=== PATIENT | male | born 1955 | race Caucasian/White ===

== ENCOUNTER 2016-11-24 08:56 | Day surgery (SDC) | payer BC ==
[~2016-11-24 08:56] MED LIST: Lactated Ringers 1,000 ML IV SCH; Lidocaine 1% 4 ML ONE; Lidocaine 1%/Sod Bicarbonate in NS 8.4% 1 ML Syringe PRN; Propofol 200 MG/20 ML SDV ONE; Sodium Chloride 0.9% 10 ML Syringe FLUSH PRN; fentaNYL 100 MCG/2 ML SDV ONE
--- NOTE | 2016-11-24 10:12 | PCM.PREANE ---
Preanesthetic Assessment - Anesthesia/Transfusion/Family Hx Anesthesia History: Prior Anesthesia Without Reaction Family History of Anesthesia Reaction: No Transfusion History: No Prior Transfusion(s) Intubation History: Unknown - Review of Systems General: No Symptoms Pulmonary: No Symptoms (COPD/ emphysema, acute bronchitis few months ago/ current smoker 1ppd times 40 yrs.) Cardiovascular: No Symptoms Gastrointestinal: No Symptoms (GERD), Constipation Neurological: No Symptoms Other: Reports: None (history of prostate hypertrophy), Easy Bruising - Physical Assessment NPO Status Date: 11/23/16 NPO Status Time: 20:00 Pulse: 77 O2 Sat by Pulse Oximetry: 96 Respiratory Rate: 16 Blood Pressure: 103/62 Temperature: 36.7 C Vital Signs: Last Vital Signs Temp 36.7 C 11/24/16 09:05 Pulse 77 11/24/16 09:05 Resp 16 11/24/16 09:05 BP 103/62 11/24/16 09:05 Pulse Ox 96 11/24/16 09:05 Height: 1.73 m Weight: 59.421 kg ASA Class: 2 Mental Status: Alert & Oriented x3 Airway Class: Mallampati = 2 Dentition: Reports: Normal Dentition, Caries Thyro-Mental Finger Breadths: 3 Mouth Opening Finger Breadths: 3 ROM/Head Extension: Full Lungs: Clear to Auscultation, Normal Respiratory Effort Cardiovascular: Regular Rate, Regular Rhythm, No Murmurs - Imaging/EKG Impressions: 2016 CXR: emphysema noted/ nothing acute noted - Allergies Allergies/Adverse Reactions: Allergies Allergy/AdvReac Type Severity Reaction Status Date / Time No Known Allergies Allergy Verified 11/24/16 09:45 - Anesthesia Plan Pre-Op Medication Ordered: None - Acknowledgements Anesthesia Type Planned: MAC Pt an Appropriate Candidate for the Planned Anesthesia: Yes Alternatives and Risks of Anesthesia Discussed w Pt/Guardian: Yes Pt/Guardian Understands and Agrees with Anesthesia Plan: Yes PreAnesthesia Questionnaire - Past Health History Medical/Surgical History: Denies Medical/Surgical History HEENT History: Reports: None Cardiovascular History: Reports: None Respiratory History: Reports: Bronchitis, Recurrent, COPD Gastrointestinal History: Reports: Chronic Constipation, Colon Polyp, GERD, Hemorrhoids Genitourinary History: Reports: Prostate Disorder, Other (See Below) Other Genitourinary History: Elevated testosterone Musculoskeletal History: Reports: Osteoporosis Neurological History: Reports: None Psychiatric History: Reports: Other (See Below) Other Psychiatric History: Fatigue Endocrine/Metabolic History: Reports: None Hematologic History: Reports: None Immunologic History: Reports: None Oncologic (Cancer) History: Reports: None Dermatologic History: Reports: None - Infectious Disease History Infectious Disease History: Reports: Influenza - Past Surgical History Head Surgeries/Procedures: Reports: None HEENT Surgical History: Reports: None Cardiovascular Surgical History: Reports: None Respiratory Surgical History: Reports: None GI Surgical History: Reports: Colonoscopy Male Surgical History: Reports: None Endocrine Surgical History: Reports: None Neurological Surgical History: Reports: None Musculoskeletal Surgical History: Reports: None Dermatological Surgical History: Reports: None - SUBSTANCE USE Smoking Status *Q: Current Every Day Smoker Tobacco Use Within Last Twelve Months: Cigarettes Days Per Week of Alcohol Use: 0 Recreational Drug Use History: No - HOME MEDS Home Medications: Home Meds Albuterol Sulfate [Proair Respiclick] 2 puff IH Q4H PRN 11/23/16 [History] Bisacodyl [Dulcolax] 5 mg PO DAILY PRN 11/23/16 [History] Denosumab [Prolia] 60 mg SUBCUT ASDIRECTED 11/23/16 [History] Fluticasone/Salmeterol [Advair 250-50 Diskus] 1 puff IH BID 11/23/16 [History] Hydrocortisone [Hydrocortisone 2.5% Crm] 1 applic RECTAL BEDTIME PRN 11/23/16 [ History] Sildenafil Citrate [Sildenafil] 50 - 100 mg PO ASDIRECTED PRN 11/23/16 [History] Tamsulosin [Flomax] 0.4 mg PO DAILY 11/23/16 [History] - CURRENT (IN HOUSE) MEDS Current Meds: Current Medications Lactated Ringer's (Ringers, Lactated) 1,000 mls @ 125 mls/hr IV ASDIRECTED DEZ Stop: 11/24/16 23:00 Last Admin: 11/24/16 09:32 Dose: 125 mls/hr Lidocaine/Sodium Bicarbonate (Buffered Lidocaine 1% In Ns 8.4%) 0.25 ml .XX ONETIME PRN PRN Reason: Prior to IV Start Stop: 11/24/16 18:00 Last Admin: 11/24/16 09:31 Dose: 0.25 ml Sodium Chloride (Saline Flush) 10 ml FLUSH ASDIRECTED PRN PRN Reason: Keep Vein Open Stop: 11/24/16 18:00 Discontinued Medications Fentanyl (Sublimaze) Confirm Administered Dose 100 mcg .ROUTE .STK-MED ONE Stop: 11/24/16 07:35 Lidocaine HCl (Xylocaine-Mpf 1%) Confirm Administered Dose 4 mls @ as directed .ROUTE .STK-MED ONE Stop: 11/24/16 07:34 Propofol (Diprivan 20 Ml) Confirm Administered Dose 200 mg .ROUTE .STK-MED ONE Stop: 11/24/16 07:35
[2016-11-24] MEDS ORDERED: Propofol 200 MG/20 ML SDV ONE (11:31)
--- NOTE | 2016-11-24 11:37 | PCM.OPNOTE ---
- General Post-Op/Procedure Note Date of Surgery/Procedure: 11/24/16 Operative Procedure(s): 1. Sigmoidoscopy. 2. Rubber band ligation; 2 column left lateral and right anterior Findings: 1. Large sigmoid diverticula with very tortuous and spastic sigmoid colon 2. Prolapsed internal hemorrhoids left lateral and right anterior Pre Op Diagnosis: Rectal bleeding Post-Op Diagnosis: 1. Internal hemorrhoids. 2. Sigmoid diverticulosis, spastic sigmoid Anesthesia Technique: MAC, Moderate Sedation Primary Surgeon: Manolo Calix Pathology: None EBL in mLs: 0 Complications: None Condition: Good Free Text/Narrative:: After adequate IV sedation and analgesia was obtained the patient was placed on his left side with monitoring. Perianal inspection revealed the hemorrhoids which were confirmed by digital examination. There were prominent left lateral and right anterior columns. A lubricated colonoscope was inserted into the rectum and advanced to the distal sigmoid. The sigmoid had a very large diverticula and was very tortuous. I was able to navigate through most of the sigmoid colon safely to about 50 cm. I was unable to safely pass the scope further because of severe angulation of this structure. I aborted the procedure and then proceeded toward hemorrhoidal ligation. I applied 2 rubber bands above the dentate above the left lateral hemorrhoidal column and above the right anterior hemorrhoidal column. There were no complications associated with this. The patient will be scheduled for an air-contrast barium enema to screen the proximal colon. This was discussed with him and his in detail and they were happy with the recommendation. Photographs were taken for the patient and for the medical record.
--- NOTE | 2016-11-24 11:43 | PCM48HPAN ---
Post Anesthesia Note - EVALUATION WITHIN 48HRS OF ANESTHETIC Vital Signs in Normal Range: Yes Patient Participated in Evaluation: Yes Respiratory Function Stable: Yes Airway Patent: Yes Cardiovascular Function Stable: Yes Hydration Status Stable: Yes Pain Control Satisfactory: Yes Nausea and Vomiting Control Satisfactory: Yes Mental Status Recovered: Yes
[2016-11-24 12:48] VITALS: BP 105/72
== END 2016-11-24 12:48 | disposition home or self-care (01) ==
LOC: JD.SDS 08:56
PROVIDERS: ATTEND Surgery
DX: K57.30 Diverticulosis of large intestine without perforation or abscess without bleeding (principal); K64.8 Other hemorrhoids; K21.9 Gastro-esophageal reflux disease without esophagitis; J44.9 Chronic obstructive pulmonary disease, unspecified; F17.210 Nicotine dependence, cigarettes, uncomplicated; N40.0 Benign prostatic hyperplasia without lower urinary tract symptoms; Z79.899 Other long term (current) drug therapy
CPT/HCPCS: 45350; J3010; J7120; 00810; J2704

== ENCOUNTER 2019-04-08 19:22 | Emergency (ER) | payer MEDICARE, OTHER ==
[2019-04-08 19:40] VITALS: BP 132/74; PULSE 103
[2019-04-08] MEDS ORDERED: Acetaminophen/HYDROcodone 325-5 MG Tab PO STA (21:27)
--- NOTE | 2019-04-08 21:36 | EDM.PDOC ---
ED HPI GENERAL MEDICAL PROBLEM - General Chief Complaint: Back Pain or Injury Stated Complaint: SHORT OF BREATH BACK AND ABDOMINAL PAIN Time Seen by Provider: 04/08/19 20:50 Source of Information: Reports: Patient, Family () History Limitations: Reports: No Limitations - History of Present Illness INITIAL COMMENTS - FREE TEXT/NARRATIVE: Mr. Jacques is a pleasant 64-year-old man with a past medical history is significant for COPD, for which he takes oxygen via an oxygen concentrator, and BPH, who presents to the ED stating that he was going up stairs yesterday around 15:00, when he coughed. He was afraid that his coughing might cause him to fall, so he sat down on the steps, and fears that he may have sat down too hard. He is subsequently developed right lower back pain that radiates across his entire lower back. His pain has been getting worse. He also reports lower abdominal cramps since yesterday. He thought his cramps might be due to constipation, therefore he took MiraLAX and almost a full bottle of magnesium citrate, without relief of symptoms. He states that it hurts for him to stand or flex. He denies a history of chronic constipation. The patient reports decreased urine output, but denies recent dysuria or gross hematuria. He states that his cough is chronic, and is associated with chronic dyspnea on exertion. He denies recent dyspnea at rest. No recent fever, chills , nausea, vomiting, diarrhea, recent weight gain or weight loss, recent bloody bowel movements or black bowel movements, recent joint aches, headaches, or rashes. The patient's PCP is KALI Osei. He did receive an influenza vaccine this season. Right Lower Back Pain Score (Numeric/FACES): 9 - Related Data Allergies Allergy/AdvReac Type Severity Reaction Status Date / Time No Known Allergies Allergy Verified 04/08/19 19:40 Home Meds: Home Meds Albuterol Sulfate [Proair Respiclick] 2 puff IH Q4H PRN 11/23/16 [History] Bisacodyl [Dulcolax] 5 mg PO DAILY PRN 11/23/16 [History] Denosumab [Prolia] 60 mg SUBCUT ASDIRECTED 11/23/16 [History] Fluticasone/Salmeterol [Advair 250-50 Diskus] 1 puff IH BID 11/23/16 [History] Hydrocortisone [Hydrocortisone 2.5% Crm] 1 applic RECTAL BEDTIME PRN 11/23/16 [ History] Sildenafil Citrate 50 - 100 mg PO ASDIRECTED PRN 11/23/16 [History] Tamsulosin [Flomax] 0.4 mg PO DAILY 11/23/16 [History] Orphenadrine [Norflex] 1 tab PO Q12H PRN #14 tab.er 04/08/19 [Rx] Past Medical History Respiratory History: Reports: COPD (home O2) Gastrointestinal History: Reports: Colon Polyp, Hemorrhoids Genitourinary History: Reports: BPH Musculoskeletal History: Reports: Osteoporosis - Infectious Disease History Infectious Disease History: Reports: Influenza - Past Surgical History GI Surgical History: Reports: Colonoscopy, Hernia, Inguinal (left), Other (See Below) (Percutaneous liver drains) Social & Family History - Tobacco Use Smoking Status *Q: Current Every Day Smoker Years of Tobacco use: 47 Packs/Tins Daily: 0.6 Packs/Tins Daily Comment: Down from 2 ppd - Caffeine Use Caffeine Use: Reports: Coffee - Alcohol Use Alcohol Use History: No - Recreational Drug Use Recreational Drug Use: No - Living Situation & Occupation Living situation: Reports: , with Spouse Occupation: Retired ED ROS GENERAL - Review of Systems Review Of Systems: Comprehensive ROS is negative, except as noted in HPI. ED EXAM, GENERAL - Physical Exam Exam: See Below Exam Limited By: No Limitations General Appearance: Alert, WD/WN, Other (Occasionally winces with sharp pain in the lower right back with body movement) Eye Exam: Bilateral Eye: EOMI, Normal Inspection Ears: Normal External Exam, Hearing Grossly Normal Nose: Normal Inspection Throat/Mouth: Normal Inspection, Normal Lips, Normal Voice, No Airway Compromise Head: Atraumatic, Normocephalic Neck: Normal Inspection, Full Range of Motion Respiratory/Chest: No Respiratory Distress, Lungs Clear, Normal Breath Sounds, No Accessory Muscle Use Cardiovascular: Normal Peripheral Pulses, Regular Rate, Rhythm, No Edema, No Gallop, No JVD, No Murmur, No Rub Peripheral Pulses: 4+: Radial (L), Radial (R) GI/Abdominal: Normal Bowel Sounds, Soft, Non-Tender (including the prepubic region, although the patient reports the sensation of "a balloon" when palpated) , No Organomegaly, No Distention, No Abnormal Bruit, No Mass (Male) Exam: Deferred Rectal (Males) Exam: Deferred Back Exam: Normal Inspection, Full Range of Motion, CVA Tenderness (R), Paraspinal Tenderness (right flank only, not left). No: CVA Tenderness (L), Vertebral Tenderness Extremities: Normal Inspection, Normal Range of Motion, No Pedal Edema, Normal Capillary Refill Neurological: Alert, Oriented, Normal Cognition, No Motor/Sensory Deficits Psychiatric: Normal Affect Skin Exam: Warm, Dry, Intact, Normal Color, No Rash Course - Vital Signs Last Recorded V/S: Last Vital Signs Temp 37.2 C 04/08/19 19:37 Pulse 103 H 04/08/19 19:37 Resp 16 04/08/19 19:37 BP 132/74 04/08/19 19:37 Pulse Ox 92 L 04/08/19 19:37 - Orders/Labs/Meds Labs: Laboratory Tests 04/08/19 Range/Units 21:35 Urine Color Yellow (Yellow) Urine Appearance Slt cloudy H (Clear) Urine pH 7.0 (5.0-8.0) Ur Specific [place] 1.025 (1.005-1.030) Urine Protein Negative (Negative) Urine Glucose (UA) Negative (Negative) Urine Ketones Negative (Negative) Urine Occult Blood Negative (Negative) Urine Nitrite Negative (Negative) Urine Bilirubin Negative (Negative) Urine Urobilinogen 0.2 (0.2-1.0) Ur Leukocyte Esterase Negative (Negative) Urine RBC Not seen (0-5) /hpf Urine WBC Not seen (0-5) /hpf Ur Squamous Epith Cells 0-5 (0-5) /hpf Amorphous Sediment Many H (NOT SEEN) /hpf Urine Bacteria Rare (FEW) /hpf Urine Mucus Not seen (FEW) /hpf Meds: Medications Discontinued Medications Generic Name Dose Route Start Last Admin Trade Name Freq PRN Reason Stop Dose Admin Hydrocodone Bitart/Acetaminophen 1 tab 04/08/19 21:27 04/08/19 21:34 [place] 325-5 Mg PO 04/08/19 21:28 1 tab ONETIME STA Administration Ibuprofen 600 mg 04/08/19 23:23 04/08/19 23:36 Motrin PO 04/08/19 23:24 600 mg ONETIME ONE Administration Lidocaine HCl 10 ml 04/08/19 23:25 04/08/19 23:36 Xylocaine 2% Jelly MUCMEM 04/08/19 23:26 10 ml ONETIME ONE Administration Orphenadrine Citrate 100 mg 04/08/19 23:23 04/08/19 23:36 Norflex PO 04/08/19 23:24 100 mg ONETIME STA Administration - Re-Assessments/Exams Free Text/Narrative Re-Assessment/Exam: 04/08/19 21:31 The patient feels constipated, although had no bowel movement following MiraLAX and almost a full bottle of Mg-citrate. I have ordered a KUB to evaluate. I am more concerned that the abdominal fullness that the patient is experiencing is due to urinary retention due to BPH, therefore I have ordered a urinalysis with post void bladder scan. The patient's lower back pain is most likely musculoskeletal, but it is interesting that he has right CVA tenderness, but no left CVA tenderness, despite the pain radiating across his entire back. This would suggest a ureterolith or, possibly, pyelonephritis, although my clinical suspicion for pyelonephritis is very low, as the patient has no fever, nausea, vomiting, or dysuria. The urinalysis will determine if there is blood suggestive of ureterolith, or UTI suggestive of pyelonephritis. Lastly, I think it unlikely that the patient suffered a compression fracture or pelvic fracture when he almost fell yesterday, but I have ordered x-rays of his lumbar spine and pelvis, just to be sure. 04/08/19 23:11 The patient's urinalysis is unremarkable. His post-void bladder scan found 150 mL of urinary retention. The KUB is to be unremarkable. No stool is seen. Formal read per the Radiologist pending. 3-view radiographs of the lumbar spine reviewed. Aortosclerosis is noted. No compression fracture is seen. Formal read per the Radiologist pending. Single view radiograph of the pelvis reviewed. No fractures or dislocations identified. Formal read per the Radiologist pending. 04/08/19 23:26 Test results discussed with the patient and his . As above, the KUB shows no stool, therefore the rectal urgency that the patient is experiencing is most likely due to pressure from his bladder. I recommended straight catheterization to drain his bladder, to see if that relieves his sensation of the need to defecate, and the patient agreed. As for the patient's back pain, it is most likely due to a muscle spasm, particularly since it is always if he remains still, and is exacerbated with many movements. The patient will be started on Norflex and oral ibuprofen, and I will submit a prescription for Norflex. The patient can take over-the- counter ibuprofen. If his symptoms persist, he should follow-up with his PCP. Departure - Departure Time of Disposition: 23:28 Disposition: Home, Self-Care 01 Condition: Good Clinical Impression: Urinary retention, Spasm of back muscles - Discharge Information *PRESCRIPTION DRUG MONITORING PROGRAM REVIEWED*: Not Applicable *COPY OF PRESCRIPTION DRUG MONITORING REPORT IN PATIENT YUDITH: Not Applicable Prescriptions: Orphenadrine [Norflex] 1 tab PO Q12H PRN #14 tab.er PRN Reason: Muscle Spasm Instructions: Muscle Cramps and Spasms, [id number], Acute Urinary Retention, Male, [id number] Referrals: Maty Huff PA-C [Primary Care Provider] - Forms: ED Department Discharge Additional Instructions: You were seen in the emergency room for lower right back pain, the sensation of constipation, and decreased urine output. Work-up in the ER included a urinalysis, a post void bladder scan, and x-rays of your abdomen, lumbar spine, and pelvis. Your urinalysis was unremarkable. You do not have a urinary tract infection or suggestion of a kidney stone. Your post void bladder scan found 150 mL. You were subsequently straight cath to drain your bladder. It is important that you continue to take your tamsulosin (Flomax). Your KUB was unremarkable. You are not constipated. X-rays of your lumbar spine showed aortosclerosis, but no compression fractures. The x-ray of your pelvis was unremarkable. No broken bones. Based on your history, physical exam, and ER tests, your back pain is most likely due to a muscle spasm. You have been started on the muscle relaxant Norflex, and a prescription for Norflex has been sent to the [facility], located on [facility]. Take 1 tablet of Norflex every 12 hours, starting tomorrow, Tuesday, . In addition to Norflex, we recommend that you take [id number] ibuprofen, 2 to 3 tablets (400-600 mg) every 8 hours, with food. You should expect significant improvement in your back pain in 2 to 3 days. If your symptoms persist, please follow-up with your PCP, KALI Osei. If any other problems, please do not hesitate to return to the ER. Sepsis Event Note - Evaluation Sepsis Screening Result: No Definite Risk - Focused Exam Date Exam was Performed: 04/10/19 Time Exam was Performed: 07:39
[2019-04-08] MEDS ORDERED: Ibuprofen 600 MG Tab PO ONE (23:23)
[2019-04-08] MEDS ORDERED: Orphenadrine 100 MG Tab.ER PO STA (23:23)
[2019-04-08] MEDS ORDERED: Lidocaine 2% Jelly 10 ML Urojet MUCMEM ONE (23:25)
--- NOTE | 2019-04-09 07:32 | CR ---
Pelvis: AP view of the pelvis was obtained. Comparison: No prior pelvis exam. Slight joint space narrowing is seen superiorly within the right hip. Very minimal narrowing within the superior left hip is seen. Sacroiliac joints are within normal limits. No fracture or other bony abnormality is seen. Impression: 1. Minimal joint space narrowing superiorly within both hips. 2. AP pelvis study is otherwise unremarkable. Diagnostic code #2 This report was dictated in [place] Standard Time
--- NOTE | 2019-04-09 07:36 | CR ---
Lumbar spine: AP, lateral and cone-down lateral views centered to the lumbosacral junction were obtained. Comparison: No prior lumbar spine imaging. Lateral reconstructed abdominal CT of 03/24/16 was utilized. Slight anterior wedging is noted of L1. Other vertebral body heights are maintained. Mild scattered endplate osteophytes are seen. Disc height is preserved. Vascular calcification is noted. Pedicles are intact. Visualized transverse and spinous processes are intact. No subluxation or fracture is seen. Sacroiliac joints appear within normal limits. Impression: 1. Slight anterior wedging of L1. This is felt to be old as this finding is noted on prior CT exam. 2. Scattered endplate osteophytes. 3. No additional abnormality is seen. Diagnostic code #2 This report was dictated in [place] Standard Time
--- NOTE | 2019-04-09 07:57 | CR ---
Abdomen: Supine view of the abdomen was obtained. Comparison: Prior abdominal x-ray of 03/04/11. Slightly prominent loop of bowel noted within the left upper abdomen believed to be air within the splenic flexure. Calcifications are noted within the pelvis compatible with phleboliths. Mild joint space narrowing is noted within the hips. Minimal vascular calcification is noted. Impression: 1. Findings as noted above. 2. Nothing acute is seen. No abnormal amounts of stool are seen. Diagnostic code #2 This report was dictated in [place] Standard Time
== END 2019-04-08 23:45 | disposition home or self-care (01) ==
LOC: JD.ED 19:22
DX: M62.830 Muscle spasm of back (principal); R33.9 Retention of urine, unspecified; J44.9 Chronic obstructive pulmonary disease, unspecified; F17.210 Nicotine dependence, cigarettes, uncomplicated; Z79.899 Other long term (current) drug therapy
CPT/HCPCS: 51701; 51798; 72100; 72170; 74018; 81001; 99285; A9270; 99283

== ENCOUNTER 2019-12-30 16:56 | Emergency (ER) | payer MEDICARE, OTHER ==
[2019-12-30 17:29] VITALS: BP 124/78
--- NOTE | 2019-12-30 18:24 | EDM.PDOC ---
ED HPI GENERAL MEDICAL PROBLEM - General Chief Complaint: General Stated Complaint: HIP PAIN/PT FELL Time Seen by Provider: 12/30/19 17:59 Source of Information: Reports: Patient, RN Notes Reviewed History Limitations: Reports: No Limitations - History of Present Illness INITIAL COMMENTS - FREE TEXT/NARRATIVE: Patient is a 64-year-old male who presents to the ED for evaluation of his right-sided chest pain. Patient states that he was reaching for something near his pickup tailgate, and he was stepping on a stool when the stool gave way underneath of him, and he ended up falling onto the right lower portion of his anterior chest on the tailgate. He states that he is having pain with deep breathing to this area. This is also very tender to the touch, he does note that he has an issue with severe osteoporosis, also COPD. He rates his pain at about a 7 out of 10, he was most concerned about broken ribs at this time. He does wear home oxygen at night at 1 L normally. He has tramadol at home but did not want to take any medications prior to coming to the ER, as he wanted to be evaluated. He has not had any fevers or chills, cough/worsening shortness of breath, nausea/vomiting/diarrhea. Right Chest Pain Score (Numeric/FACES): 7 - Related Data Allergies Allergy/AdvReac Type Severity Reaction Status Date / Time No Known Allergies Allergy Verified 12/30/19 17:29 Home Meds: Home Meds Albuterol Sulfate [Proair Respiclick] 2 puff IH Q4H PRN 11/23/16 [History] Bisacodyl [Dulcolax] 5 mg PO DAILY PRN 11/23/16 [History] Denosumab [Prolia] 60 mg SUBCUT ASDIRECTED 11/23/16 [History] Fluticasone Propion/Salmeterol [Advair 250-50 Diskus] 1 puff IH BID 11/23/16 [History] Hydrocortisone [Hydrocortisone 2.5% Crm] 1 applic RECTAL BEDTIME PRN 11/23/16 [History] Sildenafil Citrate 50 - 100 mg PO ASDIRECTED PRN 11/23/16 [History] Tamsulosin [Flomax] 0.4 mg PO DAILY 11/23/16 [History] Orphenadrine [Norflex] 1 tab PO Q12H PRN #14 tab.er 01/12/20 [Rx] Acetaminophen [Tylenol] 12/30/19 [History] traMADol HCl [Tramadol HCl] 12/30/19 [History] Past Medical History - Past Health History Medical/Surgical History: Denies Medical/Surgical History HEENT History: Reports: None Cardiovascular History: Reports: None Respiratory History: Reports: COPD Gastrointestinal History: Reports: Colon Polyp, Hemorrhoids Genitourinary History: Reports: BPH Other Genitourinary History: Elevated testosterone Musculoskeletal History: Reports: Osteoporosis Neurological History: Reports: None Psychiatric History: Reports: Other (See Below) Other Psychiatric History: Fatigue Endocrine/Metabolic History: Reports: None Hematologic History: Reports: None Immunologic History: Reports: None Oncologic (Cancer) History: Reports: None Dermatologic History: Reports: None - Infectious Disease History Infectious Disease History: Reports: Influenza - Past Surgical History Head Surgeries/Procedures: Reports: None HEENT Surgical History: Reports: None GI Surgical History: Reports: Colonoscopy, Hernia, Inguinal, Other (See Below) Endocrine Surgical History: Reports: None Neurological Surgical History: Reports: None Dermatological Surgical History: Reports: None Social & Family History - Family History Family Medical History: Noncontributory - Tobacco Use Smoking Status *Q: Current Some Day Smoker Years of Tobacco use: 30 Packs/Tins Daily: 0.5 - Caffeine Use Caffeine Use: Reports: Coffee - Recreational Drug Use Recreational Drug Use: No - Living Situation & Occupation Living situation: Reports: , with Spouse Occupation: Retired ED ROS GENERAL - Review of Systems Review Of Systems: Comprehensive ROS is negative, except as noted in HPI. ED EXAM, GENERAL - Physical Exam Exam: See Below Exam Limited By: No Limitations General Appearance: Alert, WD/WN, No Apparent Distress Respiratory/Chest: No Respiratory Distress, Lungs Clear, Normal Breath Sounds, No Accessory Muscle Use, Other (Right lower anterior chest is tender to palpation, no obvious bruising at this time.) Cardiovascular: Normal Peripheral Pulses, Regular Rate, Rhythm, No Murmur GI/Abdominal: Normal Bowel Sounds, Soft, Non-Tender, No Distention, No Mass Extremities: Normal Inspection, Normal Capillary Refill Neurological: Alert, Oriented, Normal Cognition, No Motor/Sensory Deficits Psychiatric: Normal Affect, Normal Mood Skin Exam: Warm, Dry, Intact, Normal Color, No Rash Course - Vital Signs Last Recorded V/S: Last Vital Signs Temp 97.2 F 12/30/19 17:24 Pulse 103 H 12/30/19 17:24 Resp 22 H 12/30/19 17:24 BP 124/78 12/30/19 17:24 Pulse Ox 85 L 12/30/19 17:24 - Orders/Labs/Meds Orders: Active Orders 24 hr Category Date Time Status Ribs 2V w Chest Rt [CR] Stat Exams 12/30/19 17:29 Taken - Re-Assessments/Exams Free Text/Narrative Re-Assessment/Exam: 12/30/19 18:25 Patient presents to the ED for the evaluation of his right anterior chest pain. X-rays were obtained at time of triage, there is no acute rib fracture present. There is no sign of any pneumothorax as well. Patient be discharged home with general recommendations. Departure - Departure Time of Disposition: 18:26 Disposition: Home, Self-Care 01 Condition: Good Clinical Impression: Contusion of right chest wall Qualifiers: Encounter type: initial encounter Qualified Code(s): S20.211A - Contusion of right front wall of thorax, initial encounter - Discharge Information *PRESCRIPTION DRUG MONITORING PROGRAM REVIEWED*: No *COPY OF PRESCRIPTION DRUG MONITORING REPORT IN PATIENT YUDITH: No Instructions: Contusion, [id number] Referrals: Maty Huff PA-C [Primary Care Provider] - Additional Instructions: You have been evaluated in the ED for your right sided chest pain after your fall. Your x-ray demonstrated no acute rib fractures at this time. Please use ice/heat as tolerated to the affected area. You mentioned that you have a prescription for tramadol, you may take 1 tablet every 6 hours as needed for further pain relief. If you are increasing your intake of this medication, recommend you start a stool softener like MiraLAX, to help prevent constipation as these medications can be quite constipating. Please continue to do your current breathing exercises, to make sure that you do not get any pneumonia due to your right-sided chest discomfort. Highly recommend you follow-up with Maty Huff, sometime by the end of this week, to make sure that your injuries are getting better as expected. Please return to ED if your symptoms should change or worsen. Sepsis Event Note (ED) - Evaluation Sepsis Screening Result: No Definite Risk - Focused Exam Vital Signs: Vital Signs Temp Pulse Resp BP Pulse Ox 12/30/19 17:24 97.2 F 103 H 22 H 124/78 85 L - My Orders Last 24 Hours: My Active Orders 12/30/19 17:29 Ribs 2V w Chest Rt [CR] Stat - Assessment/Plan Last 24 Hours: My Active Orders 12/30/19 17:29 Ribs 2V w Chest Rt [CR] Stat
[2019-12-30 19:49] VITALS: PULSE 94
--- NOTE | 2020-02-01 12:26 | CR ---
PROCEDURE INFORMATION: Exam: XR Right Ribs with PA Chest, 3 Views Exam date and time: 12/30/2019 5:51 PM Age: 64 years old Clinical indication: Chest wall pain; Patient HX: Right mid-upper rib pain TECHNIQUE: Imaging protocol: XR Right ribs 3 views with PA chest. COMPARISON: CT Chest wo Cont 06/13/2019 9:14 AM FINDINGS: Lungs: Chronic appearing interstitial changes are present within the lung parenchyma compatible with moderate grade COPD/emphysema. Pleural space: Unremarkable. No pleural effusion. No pneumothorax. Heart/Mediastinum: Unremarkable. No cardiomegaly. Bones/joints: The bones are diffusely demineralized. No rib fracture is identified. Post treatment related change from multilevel vertebroplasty present. IMPRESSION: 1. No acute rib fracture present. 2. Moderate grade COPD/emphysema. Thank you for allowing us to participate in the care of your patient. Dictated and Authenticated by: Manolo Alejandra MD 02/01/2020 12:29 PM Central Time ([place] & [place]) JONATHAN
== END 2019-12-30 18:35 | disposition home or self-care (01) ==
LOC: JD.ED 16:56
DX: S20.211A Contusion of right front wall of thorax, initial encounter (principal); J44.9 Chronic obstructive pulmonary disease, unspecified; F17.210 Nicotine dependence, cigarettes, uncomplicated; Z79.899 Other long term (current) drug therapy; W18.30XA Fall on same level, unspecified, initial encounter
CPT/HCPCS: 71101-26-RT; 71101-RT; 99282; 99283-25

== ENCOUNTER 2023-09-30 13:36 | Emergency (ER) | payer MEDICARE, OTHER ==
[2023-09-30 14:17] LABS: BASOPHILS PERCENT AUTO 0.4 % (0.0-1.0); EOSINOPHILS ABSOLUTE AUTO 0.1 K/mm3 (0.0-0.4); EOSINOPHILS PERCENT AUTO 0.7 % (0.0-6.0); HEMATOCRIT 48.5 % (42.0-52.0); HEMOGLOBIN 15.6 gm/dl (14.0-18.0); IMMATURE GRAN ABSOLUTE AUTO 0.03 K/mm3 (0.00-0.05); IMMATURE GRAN PERCENT AUTO 0.3 % (0.0-0.4); LYMPHOCYTES ABSOLUTE AUTO 1.4 K/mm3 (1.0-4.8); LYMPHOCYTES PERCENT AUTO 12.9 % (24.0-44.0); MEAN CORPUSCULAR HEMOGLOBIN 30.8 pg (28.0-32.0); MEAN CORPUSCULAR HGB CONC 32.2 g/dl (32.0-36.0); MEAN CORPUSCULAR VOLUME 95.7 fl (83.0-99.0); MEAN PLATELET VOLUME 10.1 fl (9.4-12.4); MONOCYTES ABSOLUTE AUTO 0.7 K/mm3 (0.0-0.8); MONOCYTES PERCENT AUTO 5.9 % (0.0-8.0); NEUTROPHILS ABSOLUTE AUTO 8.9 K/mm3 (1.8-7.7); NEUTROPHILS PERCENT AUTO 79.8 % (41.0-71.0); PLATELET COUNT,PLT 177 K/mm3 (150-400); RED BLOOD CELL COUNT 5.07 M/mm3 (4.52-5.90); WHITE BLOOD CELL COUNT,WBC 11.11 K/mm3 (3.9-11.3)
[2023-09-30] MEDS: Albuterol/Ipratropium 3.0-0.5 MG/3 ML Neb Soln NEB ONE (14:32)
[2023-09-30 14:35] LABS: A/G RATIO 0.9 (1-2); ALANINE AMINOTRANSFERASE,ALT 22 U/L (16-63); ALBUMIN 3.4 g/dl (3.4-5.0); ALKALINE PHOSPHATASE 110 U/L (46-116); ASPARTATE AMNIOTRANSFERASE,AST 20 U/L (15-37); BILIRUBIN TOTAL 0.8 mg/dL (0.2-1.0); BLOOD UREA NITROGEN,BUN 23 mg/dL (7-18); BUN/CREATININE RATIO 28.8 (14-18); CARBON DIOXIDE,CO2 31 mEq/L (21-32); CHLORIDE,CL 103 mEq/L (98-107); CREATININE 0.8 mg/dL (0.7-1.3); EST CRCL DRUG DOSING (CG) 61.02 mL/min; ESTIMATED GFR 96 mL/min (>60); GLUCOSE RANDOM 89 mg/dL (70-99); PROTEIN TOTAL,TP 7.3 g/dl (6.4-8.2); SODIUM,NA 139 mEq/L (136-145)
[2023-09-30] MEDS: cefTRIAXone 1 GM in Sodium Chloride 0.9% 100 ML IV ONE (14:38)
[2023-09-30] MEDS: methylPREDNISolone Sodium Succinate 125 MG/2 ML SDV IVPUSH ONE (14:39)
[2023-09-30 14:41] LABS: LACTIC ACID 0.9 mmol/L (0.4-2.0)
[2023-09-30 14:42] LABS: TROPONIN I HIGH SENSITIVITY < 4 pg/mL (<=76)
[2023-09-30 14:55] LABS: CORONAVIRUS COVID-19 NAA NEGATIVE (NEGATIVE); INFLUENZA A NAA NEGATIVE (NEGATIVE); RESPIRATORY SYNCYTIAL VIR NAA NEGATIVE (NEGATIVE)
[2023-09-30] MEDS: Sodium Chloride 0.9% 100 ML IV SCH (15:30)
[2023-09-30] MEDS: Iopamidol 755 Mg/ML 100 ML Bottle IVPUSH ONE (15:30)
[2023-09-30 15:52] LABS: MAGNESIUM 2.2 mg/dL (1.8-2.4); PHOSPHORUS 3.5 mg/dL (2.6-4.7); TSH 2.175 uIU/mL (0.358-3.74)
[2023-09-30 17:14] LABS: APPEARANCE,URINE CLEAR (Clear); BILIRUBIN,URINE NEGATIVE (Negative); COLOR,URINE YELLOW (Yellow); GLUCOSE,URINE NEGATIVE (Negative); KETONES,URINE NEGATIVE (Negative); LEUKOCYTE ESTERASE,URINE NEGATIVE (Negative); NITRITE,URINE NEGATIVE (Negative); OCCULT BLOOD,URINE NEGATIVE (Negative); PROTEIN,URINE NEGATIVE (Negative)
[2023-09-30 18:38] LABS: PCO2 ARTERIAL 45.7 mmHg (35.0-45.0)
[2023-09-30 18:39] LABS: BASE EXCESS ARTERIAL 2.9 (-2-2.0); BICARBONATE,ARTERIAL 27.6 meq/L (22.0-26.0); O2 SATURATION ARTERIAL 66.8 % (96.0-97.0)
[2023-09-30 19:25] VITALS: BP 106/60; PULSE 90
== END 2023-09-30 19:23 | disposition home or self-care (01) ==
LOC: JD.ED 13:36
DX: J44.1 Chronic obstructive pulmonary disease with (acute) exacerbation (principal); F17.210 Nicotine dependence, cigarettes, uncomplicated
CPT/HCPCS: 0241U; 36415; 36600; 71045; 71275; 80053; 81003; 82803; 83605; 83735; 83880; 84100; 84443; 84484; 85025; 85379; 87040; 94640; 96365; 96375; 99285; J0696; J2919; J3490; Q9967; J7620-GY